=== PATIENT | male | born 1970 | race Asian ===

== ENCOUNTER → 2016-12-21 | Outpatient (CLI) | payer BC | END | disposition home or self-care (01) | LOC: PCVCIMAG 14:52 | PROVIDERS: ATTEND Internal Medicine | DX: I71.2 Thoracic aortic aneurysm, without rupture (principal); I77.819 Aortic ectasia, unspecified site | CPT/HCPCS: 93306 ==

== ENCOUNTER → 2017-12-23 | Outpatient (CLI) | payer BC | END | disposition home or self-care (01) | LOC: PCVCIMAG 14:34 | DX: I71.2 Thoracic aortic aneurysm, without rupture (principal); I10 Essential (primary) hypertension; Q23.1 Congenital insufficiency of aortic valve; E78.5 Hyperlipidemia, unspecified; Z79.899 Other long term (current) drug therapy | CPT/HCPCS: 80061; 93005; 93306 ==

== ENCOUNTER → 2019-01-03 | Outpatient (CLI) | payer BC ==
--- NOTE | 2019-01-03 14:52 | PCVCIMAG ---
APPROVED REPORT Study performed: 01/03/2019 14:09:01 EXAM: Comprehensive 2D, Doppler, and color-flow Echocardiogram Patient Location: Echo lab Status: routine BSA: 1.84 HR: 62 bpmBP: 110/72 mmHg Rhythm: NSR Other Information Study Quality: Adequate Risk Factors: Cardiac Risk Factors: HTN Indications thoracic aortic aneurysm, bicuspid aortic valve 2D Dimensions IVSd: 10.49 (7-11mm)LVOT Diam: 22.59 (18-24mm) LVDd: 42.42 mm PWd: 9.53 (7-11mm)Ascending Ao: 48.61 (22-36mm) LVDs: 29.20 (25-40mm) Left Atrium: 35.82 (27-40mm) Aortic Root: 34.26 mm LV Single Plane 4CH: 63.48 % LV Single Plane 2CH: 60.95 % Biplane EF: 62.3 % Volumes Left Atrial Volume (Systole) Single Plane 4CH: 51.76 mLSingle Plane 2CH: 54.20 mL LA ESV Index: 29.00 mL/m2 Aortic Valve AoV Peak Juancho.: 2.99 m/s AO Peak Gr.: 35.84 mmHgLVOT Max P.57 mmHg AO Mean Gr.: 18.74 mmHgLVOT Mean P.60 mmHg AO V2 Mean: 2.05 m/sLVOT Max V: 1.18 m/s AO V2 VTI: 70.01 cmLVOT Mean V: 0.76 m/s JACQUI (VTI): 1.47 [id number] V1 VTI: 25.70 cm JACQUI Vmax: 1.58 cm2 SV (LVOT): 102.98 mL Mitral Valve E/A Ratio: 2.7 MV Decel. Time: 197.77 ms MV E Max Juancho.: 0.94 m/s MV A Juancho.: 0.35 m/s IVRT: 100.35 ms Pulmonary Valve PV Peak Juancho.: 1.11 m/sPV Peak Gr.: 4.94 mmHg Pulmonary Vein P Vein S: 0.29 m/sP Vein A: 0.30 m/s P Vein D: 0.43 m/sP Vein A Dur.: 128.0 msec P Vein S/D Ratio: 0.67 Tricuspid Valve TR Peak Juancho.: 2.60 m/s TR Peak Gr.: 27.02 mmHg TV Vmax: 0.73 m/s Left Ventricle The left ventricle is normal size. There is normal LV segmental wall motion. There is normal left ventricular wall thickness. Left ventricular systolic function is normal. The left ventricular ejection fraction is within the normal range. LVEF is 60-65%. The left ventricular diastolic function is normal. Right Ventricle The right ventricle is normal size. The right ventricular systolic function is normal. Atria The left atrium size is normal. The right atrium size is normal. Aortic Valve Aortic valve is bicuspid. Trace aortic regurgitation. There is mild valvular aortic stenosis. Calculated aortic valve area is 1.6 cm2 with maximum pressure gradient of 36 mmHg and mean pressure gradient of 19 mmHg. Mitral Valve The mitral valve is normal in structure. Mild mitral regurgitation. No evidence of mitral valve stenosis. Tricuspid Valve The tricuspid valve is normal in structure. Mild tricuspid regurgitation with PAP of 34 mmHg. Pulmonic Valve The pulmonary valve is normal in structure. There is no pulmonic valvular regurgitation. Great Vessels The aortic root is normal in size. 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 IVC is normal in size and collapses >50% with inspiration. Pericardium There is no pericardial effusion. There is no pleural effusion. <Conclusion> Left ventricular systolic function is normal. There is normal LV segmental wall motion. LVEF is 60-65%. Aortic valve is bicuspid. Mildly stenotic, trace insufficiency Calculated aortic valve area is 1.6 cm2 with maximum pressure gradient of 36 mmHg and mean pressure gradient of 19 mmHg. The mitral valve is normal in structure. Mild mitral regurgitation. Mild tricuspid regurgitation with pulmonary artery pressure of 34 mmHg. 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 There is no pericardial effusion.
== END | disposition home or self-care (01) ==
LOC: PCVCIMAG 14:11
PROVIDERS: ATTEND Internal Medicine
DX: I08.1 Rheumatic disorders of both mitral and tricuspid valves (principal); I71.2 Thoracic aortic aneurysm, without rupture; E78.5 Hyperlipidemia, unspecified; I10 Essential (primary) hypertension
CPT/HCPCS: 93306